=== PATIENT | female | born 1970 | race Caucasian/White ===

== ENCOUNTER 2020-06-13 11:06 | Emergency (ER) | payer OTHER, SELFPAY ==
[2020-06-13 11:20] VITALS: BP 128/70; PULSE 87; RESP 18; TEMP 37; O2SAT 97
--- NOTE | 2020-06-13 11:24 | ED.GENADULT ---
HPI - General Adult General Chief complaint: Ear Stated complaint: Ear ache/neck pain Time Seen by Provider: 06/13/20 11:24 Source: patient and RN notes reviewed History of Present Illness HPI narrative: Patient is a 50-year-old female who presents the urgent care with complaints of left ear pain since Wednesday with body aches and chills. 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 Patient states since then she has had some loose stools and an upset stomach. Patient denies of any abdominal pain, nausea, vomiting. Denies of any known fevers. States that she would like to rule out COVID considering her workplace will not test her. No other acute complaints. No acute distress noted. Patient read the plan of care. Related Data Home Medications Medication Instructions Recorded Confirmed cholecalciferol (vitamin D3) 25 mcg PO DAILY 06/13/20 06/13/20 [Vitamin D3] escitalopram oxalate 20 mg PO DAILY 06/13/20 06/13/20 fluticasone propion-salmeterol 1 inh INHALATION Q12H 06/13/20 06/13/20 [Advair Diskus] lansoprazole [Prevacid] 15 mg PO DAILY 06/13/20 06/13/20 mecobalamin (vitamin B12) 1,000 mcg PO DAILY 06/13/20 06/13/20 Allergies Allergy/AdvReac Type Severity Reaction Status Date / Time No Known Allergies Allergy Verified 06/13/20 11:27 Review of Systems Review of Systems: Narrative: CONSTITUTIONAL: Denies fever, chills, or sweats. EYES: Denies visual changes, redness, or discharge. ENT: Reports of left otalgia CARDIOVASCULAR: Denies chest pain, palpitations, or edema. RESPIRATORY: Denies cough or dyspnea. GASTROINTESTINAL: Reports of diarrhea/loose stools intermittently GENITOURINARY: Denies dysuria or hematuria. SKIN: Denies rash or itching. MUSCULOSKELETAL: Reports of intermittent body aches NEUROLOGIC: Denies headache, numbness, or weakness. All other systems reviewed are negative, except as documented in HPI. PMFSH Comments At the time of my signature, I reviewed and agree with the nursing past medical, surgical, social, and family history. There is no relevant family history pertinent to the patient complaint. Exam Narrative: Exam Narrative: GENERAL: This is a well-nourished, well-developed patient, in no apparent distress. HEAD: normocephalic, atraumatic. EYES: PERRL. Sclera clear/white. Vision is grossly intact. EARS: External ears normal, moderate edema and erythema noted to the left auditory canal with scant yellow drainage, right auditory canal clear and without drainage, left TM mildly injected and cloudy, right TM normal without perforation. Hearing grossly intact. NOSE: External nose normal with no obvious nasal discharge, nares without redness, no rhinorrhea. THROAT: Mucous membranes moist, posterior pharynx clear. Mild postnasal drainage NECK: Neck supple RESPIRATORY: Clear to auscultation. Breath sounds equal bilaterally. No wheezes, rales, or rhonchi. GASTROINTESTINAL: Abdomen soft, non-tender, nondistended. Bowel sounds are active. SKIN: warm, intact with no suspicious lesions or rash, good texture and turgor. NEURO: awake, alert, and oriented to person, place and time. There were no obvious focal neurologic abnormalities. EXTREMITIES: No clubbing, cyanosis, or edema. Course Vital Signs Vital signs: Vital Signs Temperature 98.6 F 06/13/20 11:20 Pulse Rate 87 06/13/20 11:20 Respiratory Rate 18 06/13/20 11:20 Blood Pressure 128/70 06/13/20 11:20 Pulse Oximetry 97 06/13/20 11:20 Temperature 98.6 F 06/13/20 11:20 Pulse Rate 87 06/13/20 11:20 Respiratory Rate 18 06/13/20 11:20 Blood Pressure 128/70 06/13/20 11:20 Pulse Oximetry 97 06/13/20 11:20 Reviewed Medical Decision Making MDM Narrative Medical decision making narrative: Advised the patient to use eardrops to the left ear as directed. Do not put anything in the ear including pants, Q-tips, peroxide, water.
== END 2020-06-13 11:40 | disposition home or self-care (01) ==
PROVIDERS: Emergency Provider Nurse Practitioner Family; PCP Internal Medicine
DX: H60.502 Unspecified acute noninfective otitis externa, left ear (principal); H66.92 Otitis media, unspecified, left ear; Z20.828 Contact with and (suspected) exposure to other viral communicable diseases; J45.909 Unspecified asthma, uncomplicated; K21.9 Gastro-esophageal reflux disease without esophagitis; F41.9 Anxiety disorder, unspecified
CPT/HCPCS: 99213; G0463

== ENCOUNTER 2021-08-27 16:55 | Emergency (ER) | payer OTHER, SELFPAY ==
[2021-08-27 17:06] VITALS: BP 153/81; PULSE 92; RESP 18; TEMP 37.1; O2SAT 98
--- NOTE | 2021-08-27 17:19 | ED.FEMALEGU ---
HPI - Female Genitourinary General Chief complaint: Urogenital-Female Stated complaint: POS UTI Time Seen by Provider: 08/27/21 17:19 Source: patient Mode of arrival: ambulatory Limitations: no limitations History of Present Illness HPI Narrative: Tabby Stark 1-year-old female with a PMH of depression and asthma who comes to [facility] with complaints of lower abdominal pain for the last 4 to 5 days . No fever no vomiting diarrhea; only had nausea 1 day last Wednesday. Related Data Home Medications Medication Instructions Recorded Confirmed cholecalciferol (vitamin D3) 25 mcg PO DAILY 06/13/20 08/27/21 [Vitamin D3] lansoprazole [Prevacid] 15 mg PO DAILY 06/13/20 08/06/21 mecobalamin (vitamin B12) 1,000 mcg PO DAILY 06/13/20 08/27/21 escitalopram oxalate 20 mg tablet 30 mg PO DAILY tablet 08/06/21 08/27/21 Allergies Allergy/AdvReac Type Severity Reaction Status Date / Time No Known Allergies Allergy Verified 08/27/21 17:07 Review of Systems Review of Systems: CONSTITUTIONAL: Denies fever, chills, sweats. EYES: Denies visual changes, redness, discharge. ENT: Denies rhinorrhea, congestion, sore throat, otalgia. CARDIOVASCULAR: Denies chest pain, palpitations, edema. RESPIRATORY: Denies dyspnea, wheezing, cough GASTROINTESTINAL: Denies abdominal pain, nausea, vomiting, diarrhea. GENITOURINARY: Denies dysuria, hematuria, abnormal discharge. Suprapubic pain SKIN: Denies rash or itching. NEUROLOGIC: Denies numbness, or focal weakness. PSYCHIATRIC: Denies anxiety or depression. [facility] Past Medical History Medical History Allergies Bronchitis Pneumonia Family History Family History Other Hypertension Social History Social History (Updated 08/27/21 @ 17:44 by Patt Jarvis CNP) Smoking status: Never smoker Alcohol intake: never Comments At time of signature, I agree with nursing past medical, surgical, social and family history. There is no relevant family history pertinent to the presenting complaint. Patient's blood pressure is elevated at this visit his primary care physician but she will follow up with Exam Narrative: GENERAL: This is a well-nourished, well-developed patient, in mild distress. HEAD: normocephalic, atraumatic. EYES: Sclera clear/white. Vision is grossly intact. EARS: External ears normal, Hearing grossly intact. NOSE: External nose normal without nasal discharge, nares without redness, no rhinorrhea. THROAT: Mucous membranes moist, NECK: Neck supple, CARDIOVASCULAR: Regular rate and rhythm without murmurs, gallops, or rubs. RESPIRATORY: Clear to auscultation. Breath sounds equal bilaterally. No wheezes, rales, or rhonchi. GASTROINTESTINAL: Abdomen soft, no acute tenderness SKIN: warm, intact with no suspicious lesions or rash, good texture and turgor. NEURO: awake, alert, and oriented to person, place and time. There were no obvious focal neurologic abnormalities. Steady gait EXTREMITIES: Normal range of motion. 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
== END 2021-08-27 17:51 | disposition home or self-care (01) ==
PROVIDERS: Emergency Provider Nurse Practitioner; PCP Internal Medicine
DX: N30.00 Acute cystitis without hematuria (principal); J45.909 Unspecified asthma, uncomplicated; K21.9 Gastro-esophageal reflux disease without esophagitis; F41.9 Anxiety disorder, unspecified; F32.9 Major depressive disorder, single episode, unspecified
CPT/HCPCS: 81003; 87086; 99213; G0463

== ENCOUNTER 2021-12-25 19:28 | Emergency (ER) | payer OTHER, SELFPAY ==
--- NOTE | 2021-12-25 19:29 | ED.URI ---
HPI - URI/Sore Throat General Chief Complaint: Upper Respiratory Infection Stated Complaint: Sore Throat Time Seen by Provider: 12/25/21 19:30 Source: patient and RN notes reviewed History of Present Illness HPI Narrative: Patient is a 51-year-old female presents the urgent care with complaints of sore throat for the last several days. Patient states she is vaccinated for Covid and took a Covid test a few days ago which was negative. 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 Denies of any illness in the home. Patient states that symptoms worsen the last 3 to 4 days. States that she has been taking Tylenol and ibuprofen. Feels like there is a lump in her throat now . Denies any recent fevers, nausea, vomiting, headaches. No other acute complaints. No acute distress noted. Patient aware of the plan of care. Some parts of this dictation were generated by voice recognition software and may contain typographical and/or grammatical inaccuracies. Related Data Home Medications Medication Instructions Recorded Confirmed cholecalciferol (vitamin D3) 25 mcg PO DAILY 06/13/20 08/27/21 [Vitamin D3] lansoprazole [Prevacid] 15 mg PO DAILY 06/13/20 08/06/21 mecobalamin (vitamin B12) 1,000 mcg PO DAILY 06/13/20 08/27/21 escitalopram oxalate 20 mg tablet 30 mg PO DAILY tablet 08/06/21 08/27/21 Allergies Allergy/AdvReac Type Severity Reaction Status Date / Time No Known Allergies Allergy Verified 12/25/21 19:36 Review of Systems Review of Systems: CONSTITUTIONAL: Denies fever, chills, or sweats. EYES: Denies visual changes, redness, or discharge. ENT: Denies rhinorrhea, congestion, otalgia. Reports of sore throat CARDIOVASCULAR: Denies chest pain, palpitations, or edema. RESPIRATORY: Denies cough or dyspnea. GASTROINTESTINAL: Denies abdominal pain, nausea, vomiting, or diarrhea. GENITOURINARY: Denies dysuria or hematuria. SKIN: Denies rash or itching. MUSCULOSKELETAL: Denies back pain, joint pain, or myalgia. NEUROLOGIC: Denies headache, numbness, or weakness. All other systems reviewed are negative, except as documented in HPI. [facility] Past Medical History Medical History Allergies Bronchitis Pneumonia Family History Family History Other Hypertension Social History Social History (Updated 08/27/21 @ 17:44 by Patt Jarvis CNP) Smoking status: Never smoker Alcohol intake: never Comments At the time of my signature, I reviewed and agree with the nursing past medical, surgical, social, and family history. There is no relevant family history pertinent to the patient complaint. Exam Narrative: GENERAL: This is a well-nourished, well-developed patient, in no apparent distress. HEAD: normocephalic, atraumatic. EYES: PERRL. Sclera clear/white. Vision is grossly intact. EARS: External ears normal, auditory canals clear and without drainage, TMs normal without perforation. Hearing grossly intact. NOSE: External nose normal with no obvious nasal discharge, nares without redness, no rhinorrhea. THROAT: Mucous membranes moist, posterior pharynx clear. Moderate postnasal drainage with notable petechiae to the roof of mouth. NECK: Neck supple, non-tender without lymphadenopathy, masses or thyromegaly. CARDIOVASCULAR: Regular rate and rhythm without murmurs, gallops, or rubs. RESPIRATORY: Clear to auscultation. Breath sounds equal bilaterally. No wheezes, rales, or rhonchi. SKIN: warm, intact with no suspicious lesions or rash, good texture and turgor. NEURO: awake, alert, and oriented to person, place and time. There were no obvious focal neurologic abnormalities. EXTREMITIES: No clubbing, cyanosis, or edema. Course Course Level of Care: Express Care Visit Vital Signs Vital signs: Vital Signs Temperature 98.0 F 12/25/21 19:33 Pulse Rate 86 12/25/21 19:33 R
[2021-12-25 19:33] VITALS: BP 163/92; PULSE 86; RESP 20; TEMP 36.7; O2SAT 97
== END 2021-12-25 19:53 | disposition home or self-care (01) ==
PROVIDERS: Emergency Provider Nurse Practitioner Family; PCP Internal Medicine
DX: J02.9 Acute pharyngitis, unspecified (principal)
CPT/HCPCS: 87081; 87880; 99213; G0463

== ENCOUNTER 2022-03-21 11:17 | Emergency (ER) | payer OTHER, SELFPAY ==
--- NOTE | ~2022-03-21 | XR_ITS ---
EXAMINATION: XR chest 2V DATE: 03/21/2022 11:41 INDICATION: Cough and congestion TECHNIQUE: PA and lateral views of the chest were obtained. COMPARISON: None FINDINGS: The lungs are clear with no focal airspace opacities, pulmonary edema, pleural effusion or pneumothor ax. The cardiomediastinal silhouette is normal. Visualized bones and soft tissues are unremarkable. IMPRESSION: 1. No acute cardiopulmonary disease. Reviewed, dictated and finalized at location A.
[2022-03-21 11:24] VITALS: BP 150/89; PULSE 84; RESP 16; TEMP 36.4; O2SAT 100
--- NOTE | 2022-03-21 11:45 | ED.GENADULT ---
HPI - General Adult General Chief complaint: Upper Respiratory Infection Stated complaint: cough, congestion, head cold Source: patient Mode of arrival: ambulatory Limitations: no limitations History of Present Illness HPI narrative: Patient presents for evaluation of respiratory symptoms. She indicates on of this year she was diagnosed with COVID. She had a runny nose at that time but no other significant symptoms. Her symptoms have now progressed to sinus congestion, thick mucopurulent discharge from bilateral nares and productive cough of yellow/green sputum. No fever, chills, wheezing, chest pain, nausea, vomiting or diarrhea. She has chronic SOB that she attributes to asthma. She does not smoke. She has received both doses of her Pfizer COVID vaccination. She went to [facility] five days ago. She states she was swabbed for strep, COVID and influenza, all of which were negative. They offered to perform CXR which she declined. She was given medrol dose cesar, which she completed as directed. No additional complaints or concerns. Related Data Home Medications Medication Instructions Recorded Confirmed cholecalciferol (vitamin D3) 25 mcg PO DAILY 06/13/20 03/21/22 [Vitamin D3] mecobalamin (vitamin B12) 1,000 mcg PO DAILY 06/13/20 03/21/22 escitalopram oxalate 20 mg tablet 20 mg PO DAILY tablet 08/06/21 03/21/22 Allergies Allergy/AdvReac Type Severity Reaction Status Date / Time No Known Allergies Allergy Verified 03/21/22 11:20 Review of Systems Review of Systems: CONSTITUTIONAL: Denies fever, chills, or sweats. EYES: Denies visual changes, redness, or discharge. ENT: Reports thick mucopurulent discharge from bilateral nares and nasal congestion. Reports sore throat which she attributes to frequent cough CARDIOVASCULAR: Denies chest pain, palpitations, or edema. RESPIRATORY: Reports productive cough of yellow/green sputum. Reports chronic SOB GASTROINTESTINAL: Denies abdominal pain, nausea, vomiting, or diarrhea. GENITOURINARY: Denies dysuria or hematuria. SKIN: Denies rash or itching. MUSCULOSKELETAL: Denies back pain, joint pain, or myalgia. NEUROLOGIC: Denies headache, numbness, dizziness, or weakness. PSYCHIATRIC: Denies anxiety or depression. [facility] Past Medical History Medical History (Updated 03/21/22 @ 12:07 by Rusty Liu, GRIEVANCE MANAGER, BC) Allergies Asthma Bronchitis Pneumonia Surgical History Surgical History History of delivery Family History Family History Mother Hypertension Diabetes mellitus Social History Social History Smoking status: Never smoker Alcohol intake: never Additional occupation/education comments: nurse Gender identity (if verbalized by the patient): Female Spiritual care concerns: No Exam Narrative: GENERAL: Well-appearing, well-nourished, and in no acute distress. HEAD: Normocephalic, atraumatic. EYES: PERRLA and EOMI. ENT: Nares clear, no rhinorrhea or epistaxis. Mucous membranes moist. Oropharynx without tonsillar hypertrophy exudate or other lesions. Bilateral TMs pearly mora nonbulging NECK: Supple. No adenopathy or masses. No carotid bruits or JVD CHEST: Clear to auscultation. Cough present on exam. No respiratory distress. No wheezes rales or rhonchi HEART: Regular rate and rhythm. No murmur heard. Normal peripheral pulses. ABDOMEN: Soft, nontender, nondistended, normal active bowel sounds. EXTREMITIES: Normal range of motion. No edema. SKIN: Warm, dry, no rash. NEURO: No focal deficits. Alert and oriented x3. PSYCH: Normal mood and affect. Course Course Emergency Course: This is a 52-year-old female who presented with complaints of mucopurulent discharge from her nares and cough. Chest x-ray was obtained and was negativ
== END 2022-03-21 12:10 | disposition home or self-care (01) ==
PROVIDERS: Emergency Provider Nurse Practitioner; PCP Internal Medicine
DX: J01.10 Acute frontal sinusitis, unspecified (principal); J45.909 Unspecified asthma, uncomplicated; Z86.16 Personal history of COVID-19
CPT/HCPCS: 71046; 99213; G0463